=== PATIENT | female | born 1965 | race Caucasian/White ===

== ENCOUNTER 2020-02-20 20:04 | Inpatient (IN) | payer OTHER ==
[~2020-02-20] VITALS: Ht 165.1 cm; Wt 46.8 kg
[~2020-02-20 20:04] MED LIST: CLINDAMYCIN HC300 MG PO; DAYPRO600 M1 PO; PERCOCET 325 MG1 TA6 PO; VITAMINS & MINE1 TAB PO
[2020-02-20 20:10] VITALS: BP 107/72
[2020-02-20 20:46] LABS: BILIRUBIN NEGATIVE (NEGATIVE); BLOOD NEGATIVE (NEGATIVE); CLARITY CLEAR (CLEAR); COLOR YELLOW (YELLOW); GLUCOSE NEGATIVE (NEGATIVE); KETONE 2+ (NEGATIVE); UROBILINOGEN 0.2 E.U./dl (0.2-1.0)
[2020-02-20 20:50] LABS: LEUKO ESTERASE TRACE (NEGATIVE); NITRITE NEGATIVE (NEGATIVE)
[2020-02-20 20:54] LABS: URINE AMPHETAMINES < 1000 (1000ng/ml); URINE BARBITURATES > 200 (200ng/ml); URINE BENZODIAZEPINES < 200 (200ng/ml); URINE CANNABINOIDS (THC) > 50 (50ng/ml); URINE COCAINE > 300 (300ng/ml); URINE METHADONE < 300 (300ng/ml); URINE OPIATES < 300 (300ng/ml)
[2020-02-20 20:56] LABS: BACTERIA 2+; EPITHELIAL CELLS 31-40; MUCOUS 2+
[2020-02-20 20:58] LABS: URINE PHENCYCLIDINE < 25 (25ng/ml)
[2020-02-20 21:08] LABS: BASO % 0.7 % (0.0-1.0); EOS # 0.1 10*3/uL (0.0-0.4); EOS % 0.9 % (1.0-4.0); HEMATOCRIT 42.6 % (37.0-47.0); LYMPH # 1.8 10*3/uL (1.3-4.4); LYMPH % 30.6 % (27.0-41.0); MEAN CELL VOLUME 105.2 fl (81.0-99.0); MEAN CORPUSCULAR HGB 35.8 pg (27.0-31.0); MEAN PLATELET VOLUME 8.8 fl (9.6-12.3); MONO # 0.7 10*3/uL (0.1-1.0); MONO % 11.5 % (3.0-9.0); NEUT # 3.3 10*3/uL (2.3-7.9); PLATELET COUNT AUTOMATED 252 10*3/uL (130-400); RED BLOOD COUNT 4.05 10*6/uL (4.10-5.10); RED CELL DISTRI WIDTH 13.4 % (0-14.5); WHITE BLOOD COUNT 5.9 10*3/uL (4.8-10.8)
[2020-02-20 21:25] LABS: ALBUMIN 3.4 gm/dl (3.1-4.5); ALKALINE PHOSPHATASE 78 U/L (45-117); BUN 28 mg/dl (7-24); CHLORIDE 104 mmol/L (98-107); LIPASE 90 U/L (73-393); POTASSIUM 3.8 mmol/L (3.5-5.1); SGOT/AST 44 IU/L (3-35); SGPT/ALT 71 U/L (12-78); SODIUM 140 mmol/L (136-145); TOTAL PROTEIN 7.9 gm/dL (6.4-8.2)
[2020-02-20 21:26] LABS: ACT PARTIAL THROMBO TIME 22.7 SECONDS (20.0-32.1)
[2020-02-20 21:31] LABS: ACETAMINOPHEN (TYLENOL) < 5.0 ug/ml (10-30); ETHYL ALCOHOL < 3.0 mg/dl (<3); TROPONIN I < 0.015 ng/ml (<0.045)
[2020-02-20 22:35] VITALS: BP 106/68
--- NOTE | 2020-02-20 22:35 | NUR ---
Time: 2234 A 54 year old F admitted to under services of SHERRY MORFIN DO. Pt. arrived via bed from ER. Chief complaint: PRESENTS TO ER REQUESTING DETOX. ADMITS TO SNORTING HEROIN, SMOKING CRACK, AND DRINKING 24 BEERS DAILY. ЕЛЕНА LOZOYA
[2020-02-20] MEDS ORDERED: HALOPERIDOL1 MG PO (22:47)
[2020-02-20] MEDS ORDERED: QUETIAPINE FUMA25 MG PO (22:47)
--- NOTE | 2020-02-20 23:28 | NUR ---
Patient displaying withdrawal symptoms, including: irritability, anxiousness, restlessness and agitation. Scheduled/PRN medications provided, SEE EMAR. Will continue to monitor medication effectiveness.
--- NOTE | 2020-02-21 00:15 | NUR ---
Patient resting. Responding to scheduled medications with fewer complaints of pain and anxiety.
--- NOTE | 2020-02-21 06:00 | NUR ---
SLEPT THROUGHOUT NIGHT, AWAKENED ONLY FOR ROUTINE MEDS. RESPIRATIONS EASY. CALL LIGHT WITHIN REACH. NO VOICED COMPLAINTS THIS SHIFT
--- NOTE | 2020-02-21 11:17 | NUR ---
PATIENT MEETS [facility]. PATIENT WANTS TO FOLLOW UP WITH RESIDENTIAL TREATMENT FOR HER AFTERCARE PLAN. ME STAFF WILL SENT REFERRAL TO [facility]. NALLELY NAZARIO B.A. MASS SPECTROSCOPIST
[2020-02-21 12:00] VITALS: BP 118/74
--- NOTE | 2020-02-21 12:01 | NUR ---
BENTYL GIVEN FOR C/O ABDM. CRAMPING, ROBAXIN GIVEN FOR C/O MUSCLE CRAMPING. WILL MONITOR.
--- NOTE | 2020-02-21 12:09 | NUR ---
Nutritional Support Services Note: Ht.5'5 Wt.103#. BMI 17.2. Pt is underweight. Dx of alcohol withdrawal and polysubstance abuse. Appetite since admission has been good, she is eating 100% of meals. Pt is receiving snacks through out the day as desired. She receives a night snack. Staff to continue to encourage good po intake. Discussed need for weight increase. Will follow if needed. Jessi Holm Rdn Ld
--- NOTE | 2020-02-21 13:00 | NUR ---
STEVE AND KORI EFFECTIVE PER PT.
--- NOTE | 2020-02-21 13:52 | NUR ---
PATIENT HAS BEEN ACCEPTED TO [facility] IN [facility] FOR RESIDENTIAL TREATMENT FOR MONDAY, February POST DISCHARGE. [place] STAFF WILL SET UP TRANSPORTATION THROUGH HER INSURANCE IF NEEDED. PATIENT AGREES AND UNDERSTANDS HER AFTERCARE PLAN. NALLELY NAZARIO B.A. CLIENT OPERATIONS MANAGER
--- NOTE | 2020-02-21 14:14 | NUR ---
ROBAXIN GIVEN FOR C/O MUSCLE CRAMPING, BENTYL GIVEN FOR C/O ABDM. CRAMPING. WILL MONITOR.
--- NOTE | 2020-02-21 15:50 | NUR ---
ZOFRAN GIVEN FOR C/O NUASEA, IV ATIVAN GIVEN FOR C/O SEVERE ANXIETY. WILL MONITOR.
[2020-02-21 16:00] VITALS: BP 114/75
--- NOTE | 2020-02-21 17:00 | NUR ---
ZOFRAN AND ATIVAN APPEAR EFFECTIVE. PT RESTING IN BED WITH EYES CLOSED.
--- NOTE | 2020-02-21 18:09 | NUR ---
PT REQUESTING MEDS, WHEN ASKED FOR WHAT SYMPTOMS, PT RESPONDS TO HELP ME SLEEP. I EXPLAINED TO PT THAT MEDS FOR SLEEP WEREN'T TYPICALLY GIVEN THIS EARLY. WILL MONITOR.
--- NOTE | 2020-02-21 18:38 | NUR ---
VISTARIL GIVEN FOR C/O ANXIETY. ROBAXIN GIVEN FOR C/O MUSCLE ACHES. WILL MONITOR.
[2020-02-21 20:00] VITALS: BP 105/65
--- NOTE | 2020-02-21 20:52 | NUR ---
PT C/O STOMACH CRAMPS, NAUSEA, RLS, ANXIETY, DIAPHORESIS. MEDICATED W/ZOFRAN, MOTRIN, BENTYL, TRAZADONE. NO TREMORS NOTED. CALL LIGHT IN REACH.
--- NOTE | 2020-02-21 21:52 | NUR ---
PT RESTING QUIETLY IN BED W/EYES CLOSED. PRN MEDS EFFECTIVE.
[2020-02-22] VITALS: BP 92/63
--- NOTE | 2020-02-22 03:32 | NUR ---
PT RESTING QUEITLY IN BED W/EYES CLOSED. NO S/S OF WITHDRAWAL NOTED. CALL LIGHT IN REACH.
--- NOTE | 2020-02-22 07:00 | NUR ---
ARRIVED ON SHIFT, REPORT RECEIVED FROM OFF GOING NURSE, WHITE BOARD UPDATED.
--- NOTE | 2020-02-22 07:15 | NUR ---
INTRODUCED TO SELF TO PATIENT, BED IN LOWN POSITION WITH WHEEL LOCKS ENGAGED, SIDE RAILS UP X 2 FOR TURNING AND REPOSITIONING, CALL LIGHT WITHIN REACH, CALL LIGHT WITHIN REACH.
[2020-02-22 08:00] VITALS: BP 96/56
--- NOTE | 2020-02-22 08:56 | NUR ---
CALL PLACED TO DR. NEGRO, REPORTED PATIENT HAS ITCHING ABOVE PUBUS, SLIGHT RASH NOTED.
--- NOTE | 2020-02-22 09:30 | NUR ---
PATIENT C/O ABDOMINAL CRAMPING AND ALL OVER PAIN 10/10, MEDICATED WITH BENTYL, MOTRIN AND VISTRAL ORDERED PRN.
--- NOTE | 2020-02-22 09:38 | NUR ---
PATIENT REPORTS HER ANXIETY IS WORSENING, MEDICATED WITH LORAZEPAM ORDERED PRN.
--- NOTE | 2020-02-22 10:30 | NUR ---
PATIENTS PRN MEDICATIONS EFFECTIVE EVIDENCED BY PATIENT RESTING QUIETLY WITH EYES CLOSED, RESP. EASY AND NON-LABORED. WILL CONTINUE TO MONITOR.
[2020-02-22 12:00] VITALS: BP 94/56
--- NOTE | 2020-02-22 14:15 | NUR ---
CALL PLACED TO DR. NEGRO ADVISED THAT PATIENT WANTED SHOWER, ORDER RECEIVED TO REMOVE MONITOR TO SHOWER.
[2020-02-22 16:00] VITALS: BP 102/58
[2020-02-22 20:00] VITALS: BP 96/62
--- NOTE | 2020-02-22 21:20 | NUR ---
PATIENT MEDICATED WITH TRAZODONE FOR COMPLAINTS OF INSOMNIA. WILL MONITOR FOR EFFECTIVENESS. CALL LIGHT IN REACH.
--- NOTE | 2020-02-22 21:45 | NUR ---
PATIENT MEDICATED WITH TRAZODONE FOR COMPLAINTS OF INSOMNIA. WILL MONITOR FOR EFFECTIVENESS. CALL LIGHT IN REACH.
[2020-02-23] VITALS: BP 96/68
--- NOTE | 2020-02-23 00:19 | NUR ---
TRAZODONE EFFECTIVE. PATIENT IN BED SLEEPING. NO SIGNS OR SYMPTOMS OF DISTRESS NOTED.
--- NOTE | 2020-02-23 07:00 | NUR ---
ARRIVED ON SHIFT, RECEIVED REPORT FROM OFFGOING NURSE, ASSUMED CARE OF PATIENT.
--- NOTE | 2020-02-23 07:25 | NUR ---
INTRODUCED SELF TO PATIENT BED IN LOW POSITION, WHEEL LOCKS ENGAGED, SIDE RAILS UP X 2 FOR TURNING AND REPOSITIONING, CALL LIGHT WITHIN REACH, NO NEEDS VOICED AT THIS TIME. WHITE BOARD UPDATED.
--- NOTE | 2020-02-23 07:30 | NUR ---
Shift chart check completed.
[2020-02-23 08:00] VITALS: BP 110/72
--- NOTE | 2020-02-23 10:00 | NUR ---
PATIENT REQUESTING IV BE REMOVED SPOKE WITH DR. SUERO HE GAVE OKN TO REMOVE AND LEAVE OUT.
--- NOTE | 2020-02-23 10:40 | NUR ---
PATIENT C/O ALL OVER PAIN 10/10, ABDOMINAL CRAMPING AND NAUSEA, MEDICATED WITH MOTRIN, BENTYL AND ZOFRAN ORDERED.
--- NOTE | 2020-02-23 11:40 | NUR ---
MOTRIN, BENTYL AND ZOFRAN EFFECTIVE EVIDENCED BY, UPON ENTERING PATIENTS ROOM, SHE WAS RESTING QUIETLY WITH EYES CLOSED, RESPIRATIONS EASY, AND NON-LABORED, NO S/S OF DISTRESS NOTED.
[2020-02-23 12:00] VITALS: BP 94/50
--- NOTE | 2020-02-23 15:37 | NUR ---
PATIENT C/O OF INDIGESTION MEDICATED WITH MYLANTA ORDERED PRN.
[2020-02-23 16:00] VITALS: BP 96/58
[2020-02-23 20:00] VITALS: BP 100/63
--- NOTE | 2020-02-23 21:25 | NUR ---
PATIENT MEDICATED WITH TRAZODONE FOR COMPLAINTS OF INSOMNIA AND MAALOX FOR COMPLAINTS OF HEARTBURN. WILL MONITOR FOR EFFECTIVENESS. CALL LIGHT IN REACH.
--- NOTE | 2020-02-23 22:15 | NUR ---
TRAZODONE AND MAALOX EFFECTIVE.
[2020-02-24] VITALS: BP 122/86
--- NOTE | 2020-02-24 07:00 | NUR ---
ARRIVED ON SHIFT, REPORT RECEIVED FROM OFFGOING NURSE, ASSUMED CARE OF PATIENT.
[2020-02-24 07:19] LABS: HEMATOCRIT 35.6 % (37.0-47.0); MEAN CELL VOLUME 108.5 fl (81.0-99.0); MEAN CORPUSCULAR HGB CONC 33.1 g/dl (33.0-37.0); MEAN PLATELET VOLUME 8.7 fl (9.6-12.3); PLATELET COUNT AUTOMATED 165 10*3/uL (130-400); RED BLOOD COUNT 3.28 10*6/uL (4.10-5.10); RED CELL DISTRI WIDTH 13.6 % (0-14.5); WHITE BLOOD COUNT 5.9 10*3/uL (4.8-10.8)
--- NOTE | 2020-02-24 07:30 | NUR ---
INTRODUCED SELF TO PATIENT BED IN LOW POSITION, WHEEL LOCKS ENGAGED, SIDE RAILS UP X 2 FOR TURNING AND REPOSITIOING, CALL LIGHT WITHIN REACH, ASKING ABOUT DISCHARGE TIME, ADVISED THAT NEED TO DO THEIR ROUNDS. NO OTHER NEEDS VOICED, WHITE BOARD UPDATED.
[2020-02-24 07:40] LABS: CREATININE 0.51 mg/dL (0.55-1.02)
[2020-02-24 07:42] LABS: TOTAL CELLS COUNTED 100 #CELLS
[2020-02-24 07:43] LABS: PLATELET SUFFICIENCY NORMAL (NORMAL)
--- NOTE | 2020-02-24 08:13 | NUR ---
Shift chart check completed.
--- NOTE | 2020-02-24 11:34 | NUR ---
Patient discharged in stable condition, referral letter provided to patient with specific instructions and appointment for ongoing treatment. Patient verbalizes understanding of discharge plan, IV REMOVED REFUSED W/C FOR DISCHARGE ESCORTED OUT BY GAYE.
== END 2020-02-24 11:34 | disposition home or self-care (01) | DRG 773 ==
LOC: ED 20:04 → 5E 21:12 → EDHOLD 21:12 → 5E 22:27
PROVIDERS: Nurse Practitioner Family; ADMIT Student in an Organized Health Care Education/Training Program
DX: F11.23 Opioid dependence with withdrawal (principal); F10.239 Alcohol dependence with withdrawal, unspecified; F17.210 Nicotine dependence, cigarettes, uncomplicated; D75.89 Other specified diseases of blood and blood-forming organs; R74.0 Nonspecific elevation of levels of transaminase and lactic acid dehydrogenase [LDH]; F14.23 Cocaine dependence with withdrawal; F13.10 Sedative, hypnotic or anxiolytic abuse, uncomplicated; F41.9 Anxiety disorder, unspecified; F12.10 Cannabis abuse, uncomplicated; E83.41 Hypermagnesemia; F95.2 Tourette's disorder; E44.0 Moderate protein-calorie malnutrition; Z71.6 Tobacco abuse counseling; Z88.8 Allergy status to other drugs, medicaments and biological substances; Z88.0 Allergy status to penicillin; Z88.6 Allergy status to analgesic agent; Z82.0 Family history of epilepsy and other diseases of the nervous system; Z80.8 Family history of malignant neoplasm of other organs or systems; Q05.9 Spina bifida, unspecified

== ENCOUNTER 2020-02-28 01:58 | Emergency (ER) | payer OTHER ==
[~2020-02-28] VITALS: Ht 166.3 cm; Wt 49.9 kg
[~2020-02-28 01:58] MED LIST changes: +HALOPERIDOL1 MG PO; +QUETIAPINE FUMA25 MG PO
[2020-02-28 02:44] LABS: HEMATOCRIT 38.7 % (37.0-47.0); MEAN CORPUSCULAR HGB 35.8 pg (27.0-31.0); MEAN CORPUSCULAR HGB CONC 32.8 g/dl (33.0-37.0); MEAN PLATELET VOLUME 8.9 fl (9.6-12.3); PLATELET COUNT AUTOMATED 188 10*3/uL (130-400); RED BLOOD COUNT 3.55 10*6/uL (4.10-5.10); RED CELL DISTRI WIDTH 13.6 % (0-14.5); WHITE BLOOD COUNT 5.7 10*3/uL (4.8-10.8)
[2020-02-28 03:02] LABS: ACETAMINOPHEN (TYLENOL) < 5.0 ug/ml (10-30); ALBUMIN 2.9 gm/dl (3.1-4.5); ALKALINE PHOSPHATASE 55 U/L (45-117); BUN 19 mg/dl (7-24); CHLORIDE 110 mmol/L (98-107); CREATININE 0.56 mg/dL (0.55-1.02); ETHYL ALCOHOL < 3.0 mg/dl (<3); SGOT/AST 54 IU/L (3-35); SGPT/ALT 85 U/L (12-78); SODIUM 143 mmol/L (136-145); TOTAL PROTEIN 6.7 gm/dL (6.4-8.2)
[2020-02-28 03:07] LABS: PLATELET SUFFICIENCY NORMAL (NORMAL); TOTAL CELLS COUNTED 100 #CELLS
[2020-02-29] MEDS ORDERED: VISTARIL50 MG PO (11:01)
[2020-02-29] MEDS ORDERED: COGENTIN0.5 MG PO (11:02)
== END 2020-02-28 04:29 | disposition home or self-care (01) ==
LOC: ED 01:58
PROVIDERS: Emergency Medicine
DX: F19.10 Other psychoactive substance abuse, uncomplicated (principal); J44.9 Chronic obstructive pulmonary disease, unspecified; F41.9 Anxiety disorder, unspecified; F17.200 Nicotine dependence, unspecified, uncomplicated; Z79.899 Other long term (current) drug therapy

== ENCOUNTER 2020-02-28 07:13 | Inpatient (IN) | payer OTHER ==
[~2020-02-28] VITALS: Ht 165.1 cm; Wt 49.9 kg
[2020-02-28 07:21] VITALS: BP 118/86
[2020-02-28 08:26] LABS: HEMATOCRIT 40.9 % (37.0-47.0); MEAN CELL VOLUME 109.4 fl (81.0-99.0); MEAN CORPUSCULAR HGB 35.3 pg (27.0-31.0); MEAN CORPUSCULAR HGB CONC 32.3 g/dl (33.0-37.0); MEAN PLATELET VOLUME 8.9 fl (9.6-12.3); PLATELET COUNT AUTOMATED 191 10*3/uL (130-400); RED BLOOD COUNT 3.74 10*6/uL (4.10-5.10); RED CELL DISTRI WIDTH 13.6 % (0-14.5); WHITE BLOOD COUNT 6.1 10*3/uL (4.8-10.8)
--- NOTE | 2020-02-28 08:33 | NUR ---
PT REQUESTING [facility], NALLELY FROM OUR [facility] WAS CALL, PT WILL NOT QUALITIY SINCE SHE IS NOT 30 DAYS OUT FROM LAST [facility] ADMITT. NALLELY STATES SHE WILL COME SPEAK TO THE PT.
[2020-02-28 08:41] LABS: ALBUMIN 3.2 gm/dl (3.1-4.5); ALKALINE PHOSPHATASE 65 U/L (45-117); BUN 15 mg/dl (7-24); CHLORIDE 110 mmol/L (98-107); CREATININE 0.49 mg/dL (0.55-1.02); POTASSIUM 3.8 mmol/L (3.5-5.1); SGOT/AST 54 IU/L (3-35); SGPT/ALT 94 U/L (12-78); SODIUM 140 mmol/L (136-145); TOTAL PROTEIN 7.4 gm/dL (6.4-8.2)
[2020-02-28 08:48] LABS: ETHYL ALCOHOL < 3.0 mg/dl (<3)
[2020-02-28 08:56] LABS: ATYPICAL LYMPHS 1 % (0-0); BASOPHILS 2 % (0-1); PLATELET SUFFICIENCY NORMAL (NORMAL); TOTAL CELLS COUNTED 100 #CELLS
[2020-02-28 09:01] LABS: URINE AMPHETAMINES < 1000 (1000ng/ml); URINE BARBITURATES > 200 (200ng/ml); URINE BENZODIAZEPINES > 200 (200ng/ml); URINE CANNABINOIDS (THC) < 50 (50ng/ml); URINE COCAINE < 300 (300ng/ml); URINE METHADONE < 300 (300ng/ml); URINE OPIATES < 300 (300ng/ml)
[2020-02-28 09:05] LABS: URINE PHENCYCLIDINE < 25 (25ng/ml)
--- NOTE | 2020-02-28 09:05 | NUR ---
UNABLE TO OBTAIN IV ACCESS, NALLELY DISCUSSED PATIENT TO GO TO [facility], DOCTOR NOTIFIED
--- NOTE | 2020-02-28 10:14 | NUR ---
STILL UNABLE TO OBTAIN AN IV. ONE MORE ATTEMPT WILL BE MADE.
--- NOTE | 2020-02-28 10:55 | NUR ---
IV WAS ESTABLISED IN THE R HAND, VIT BAG INFUSING PER ORDER.
[2020-02-28 11:01] VITALS: BP 119/88
[2020-02-28 11:05] VITALS: BP 125/89
--- NOTE | 2020-02-28 11:05 | NUR ---
A 54, admitted to 5E, under the services of TOMAS Boyce DO with a diagnosis of ALCOHOL WITHDRAWAL. Chief complaint is SAME. Patient arrived via stretcher from ER. Monitor applied. Initial assessment completed. Vital signs taken and recorded. See assessment for past medical history, medications and allergies. Patient and/or family oriented to unit. [facility] visitation policy reviewed. Clothing/patient valuable form completed. LULU GILLETTE
--- NOTE | 2020-02-28 11:26 | NUR ---
Medicated with vistaril, bentyl, tylenol and zofran per prn orders for c/o anxiety, abdominal cramping and pain and nausea.
--- NOTE | 2020-02-28 12:10 | NUR ---
Pt woken for routine dose of ativan taper and nicotine inhaler. Pt states she is feeling relief from symtpoms of withdrawal since having prn medications.
--- NOTE | 2020-02-28 15:50 | NUR ---
Pt state she has hx of spina bifada and has a bulge on her back that has increased in size. States it is causing her pain and she wanted physican called to see if she could have some neurotin ordered. I notified pt that I would call but that I could given her some tylenol and robaxin if she would like. Pt agreed. Pt medicated with this at this time. I spoke with Candice Card regarding pt request and that I had given pt tylenol and robaxin. No order for neurotin.
[2020-02-28 16:00] VITALS: BP 103/82
--- NOTE | 2020-02-28 16:30 | NUR ---
States that meds helped somewhat for back discomfort.
--- NOTE | 2020-02-28 18:57 | NUR ---
Pt c/o shakes, moderate tremors noted. States she feels awful, anxious and sick. Medicated with ativan iv per prn order.
--- NOTE | 2020-02-28 19:25 | NUR ---
Pt states ativan iv helped with anxiety somewhat. States she is still feeling anxious. States feels like she is having trouble breathing. VS wnl. HR 103. Respirations were 18. Pox on ra 97% at this time. Given vistaril at this time. Will continue to monitor.
[2020-02-28 20:00] VITALS: BP 116/77
--- NOTE | 2020-02-28 20:15 | NUR ---
PT ANXIOUS, PACING FLOOR, ABDOMINAL CRAMPS. MEDICATED WITH ATIVAN AND BENTYL, SEE EMAR. CALL LIGHT IN REACH.
--- NOTE | 2020-02-28 21:29 | NUR ---
PT REQUESTING TRAZADONE FOR SLEEP. ALSO REQUESTING SMOKING PATCH INSTEAD INHALER, SEE EMAR. MEDICATED WITH NICOTINE PATCH. CALL LIGHT IN REACH.
--- NOTE | 2020-02-28 21:31 | NUR ---
REQUESTING ANOTHER TRAZADONE MEDICATED SEE EMAR. CALL LIGHT IN REACH.
--- NOTE | 2020-02-28 22:20 | NUR ---
RESTING IN BED. RESP-EASY AND REGULAR. MEDICATION EFFECTIVE. NO C/O AT THIS TIME. CALL LIGHT IN REACH.
--- NOTE | 2020-02-28 23:20 | NUR ---
PT RESTING IN BED. RESP-EASY AND REGULAR. PT MEDICATED WITH ATIVAN FOR ANXIETY. MEDICATED WITH REQUIP AND ROBAXIN FOR RESTLESS LEGS AND MUSCLE ACHES. SEE EMAR. CALL LIGHT IN REACH.
[2020-02-29] VITALS: BP 115/79
--- NOTE | 2020-02-29 00:20 | NUR ---
SLEEPING IN BED. RESP-EASY AND REGULAR. MEDICATION SEEMS TO BE EFFECTIVE. CALL LIGHT IN REACH.
--- NOTE | 2020-02-29 06:10 | NUR ---
PT RESTIN GIN BED. MEDICATED WITH ATIVAN FOR ANXIETY AND REQUIP PER ROUTINE ORDERS, SEE EMAR. CALL LIGHT IN REACH.
--- NOTE | 2020-02-29 06:33 | NUR ---
PT C/O HEADACHE, RATES PAIN 10 ON PAIN SCALE 0-10. MEDICATED WITH TYLENOL PO PER PRN ORDER SEE EMAR. ALSO MEDICATED WITH ROBAXIN FOR MUSCLE ACHES. SEE EMAR. CALL LIGHT IN REACH .
[2020-02-29 08:00] VITALS: BP 110/72
--- NOTE | 2020-02-29 10:43 | NUR ---
MEDICATED WITH PRN PO VISTARIL AND BENTYL FOR ANXIETY AND ABDOMINAL CRAMPS, TYLENOL AT 1036 FOR HEADACHE, AND ZOFRAN FOR NAUSEA AT 1047. BENADRYL AND REGLAN WERE ADMINISTERED X 1 ORDERED FOR HEADACHE W/NAUSEA AND ALSO STARTED IVF W/NSS @ 125ML/HR ORDERED FOR DEHYDRATION.
[2020-02-29] MEDS ORDERED: VISTARIL50 MG PO (11:01)
[2020-02-29] MEDS ORDERED: COGENTIN0.5 MG PO (11:02)
--- NOTE | 2020-02-29 11:30 | NUR ---
Patient resting. Responding to scheduled and prn medications with fewer complaints of pain and anxiety.
--- NOTE | 2020-02-29 11:34 | NUR ---
Basic Sciences Professor in to talk to patient. Patient states lives at HOME with ALONE. There are NO steps in the home. Physician: NONE AT THIS TIME [facility]acy: [facility] Home health services: NONE Patient's level of ADLs: INDEPENDENT Patient has working utilities: YES DME: NONE Follow-up physician's appointment after d/c: NO PCP AT THIS TIME Does patient want to access PORTAL?: NO Discharge plan PT LIVES AT HOME ALONE AND IS INDEPENDENT IN HER CARE. PT RECENTLY COMPLETED [facility] AND WAS DC TO [facility]. RELASPED WHEN DISCHARGED FROM [facility]. PT DECLINES NEED FOR ANY HOME SERVICES AT THIS TIME. WILL CONTINUE TO FOLLOW. PT STATES SHE WILL HAVE A RIDE HOME ON DISCHARGE HOME. . TARIQ OSPINA
[2020-02-29 12:00] VITALS: BP 102/58
--- NOTE | 2020-02-29 12:44 | NUR ---
PATIENT REPORTS GENERALIZED BODY ACHES AND CRAMPS, GAVE PRN ROBAXIN.
--- NOTE | 2020-02-29 12:51 | NUR ---
MEDICATED WITH PRN IV ATIVAN FOR ANXIETY.
--- NOTE | 2020-02-29 14:01 | NUR ---
ADMINISTERED IV ATIVAN X 1 NOW ORDERED.
[2020-02-29 15:00] VITALS: BP 114/67
--- NOTE | 2020-02-29 15:10 | NUR ---
PATIENT REPORTS MIDSTERNAL CHEST PAIN AND SHORTNESS OF BREATH AND SWEATING, STATES NOT BREATHING RIGHT FOR PAST HALF AN HOUR, ONSET 1330. 19 REGULAR RESPIRATIONS NOTED, SKIN WARM AND DRY, LUNGS CLEAR TO AUSCULTATION. DESCRIBES PAIN TO CHEST THROBBING/CONSTANT. OBTAINED VITAL SIGNS FOLLOWS: BP 114/67, PULSE 108, TEMP. 98.8 AND POX 97% ROOM AIR. DR. BREWER NOTIFIED OF THESE FINDINGS. OBTAINING STAT EKG.
[2020-02-29 16:00] VITALS: BP 122/72
--- NOTE | 2020-02-29 16:10 | NUR ---
PT REPORTS OF HEADACHE AND BODYACHES, GAVE PO PRN TYELNOL. GAVE VISTARIL FOR ANXIETY.
--- NOTE | 2020-02-29 17:10 | NUR ---
PRN PO TYLENOL AND VISTARIL NOT EFFECTIVE, PER PATIENT.
--- NOTE | 2020-02-29 17:21 | NUR ---
PATIENT IS NOW SLEEPING, NO S/S PAIN OR DISTRESS.
--- NOTE | 2020-02-29 17:27 | NUR ---
PATIENT AWAKE AND C/O PAIN/ACHES/CRAMPS HEADACHE.
--- NOTE | 2020-02-29 18:35 | NUR ---
PATIENT C/O BODY PAIN/CRAMPS, ADMINISTERED PO ROBAXIN AT THIS TIME.
[2020-02-29 20:00] VITALS: BP 110/63
--- NOTE | 2020-02-29 20:10 | NUR ---
PATIENT REQUESTING NURSE TO COME TO HER ROOM. UPON ENTERING ROOM PATIENT LYING FLAT AND SUPINE IN BED, STATING THAT SHE "FEELS LIKE SHIT AND NEEDS WHATEVER MEDS I CAN GET RIGHT NOW." PATIENT MEDICATED WITH SCHEDULED PO ATIVAN, REQUIP SEROQUEL AND PRN BENTYL AND TRAZADONE AT THIS TIME. PATIENT REQUESTING BENADRYL ALSO AT THIS TIME TO HELP HER SLEEP, ADVISED THAT SHE IS NOT ORDERED THIS MEDICATION AND THE HOSPITALIST WILL BE CALLED FOR ORDERS. CALL LIGHT WITHIN REACH, WILL CONTINUE TO MONITOR.
--- NOTE | 2020-02-29 20:51 | NUR ---
PATIENT TOLD AIDE THAT SHE WAS HAVING CHEST PAIN AND SHORTNESS OF BREATH AT THIS TIME. UPON ENTERING ROOM THIS RN FOUND PATIENT LYING FLAT AND SUPINE IN HER BED, HEAD OF BED ELEVATED TO 30 DEGREES, VITAL SIGBNS OBTAINED FOLLOWS, SPO2, 97% ON ROOM AIR, RESPIRATIONS 18 NON-LABORED AND REGULAR, HEART RATE 103 ON SOLAR ELECTRIC/PHOTOVOLTAIC INSTALLER AND REGULAR SINUS RHYTHM, BLOOD PRESSURE 112/68, NO DIAPHORESIS NOTED TO PATIENT SKIN. PATIENT REQUESTING ANOTHER TRAZADONE AT THIS TIME ALONG WITH BENADRYL AND "WHATEVER I CAN GET THAT I HAVEN'T GOT YET." PATIENT ADVISED THAT THE HOSPITALIST WILL BE CALLED FOR FURTHER ORDERS AND RECCOMENDATIONS FOR CHEST PAIN.
--- NOTE | 2020-02-29 20:56 | NUR ---
DR. SCHREIBER NOTIFIED AT THIS TIME OF PATIENT COMPLAINTS OF CHEST PAIN AND SHORTNESS OF BREATH, VITAL SIGNS AND CONDITION. ORDERS FOR BLOOD WORK PLACED.
--- NOTE | 2020-02-29 21:11 | NUR ---
PRN ATIVAN PO AND VISTARIL GIVEN AT THIS TIME, A&O X3, CALL LIGHT WITHIN REACH WILL CONTINUE TO MONITOR.
[2020-02-29 21:52] LABS: BUN 9 mg/dl (7-24); CHLORIDE 116 mmol/L (98-107); CREATININE 0.68 mg/dL (0.55-1.02); POTASSIUM 3.3 mmol/L (3.5-5.1); SODIUM 147 mmol/L (136-145); TROPONIN I < 0.015 ng/ml (<0.045)
--- NOTE | 2020-02-29 22:50 | NUR ---
DR. SCHREIBER NOTIFIED OF PATIENT ORDERED LAB RESULTS, WILL REVIEW AND PLACE ORDERS IF NEEDED.
--- NOTE | 2020-02-29 23:08 | NUR ---
ONE TIME DOSE OF K-DUR GIVEN AT THIS TIME FOR POTASSIUM OF 3.3. PRN ROBAXIN GIVEN AT THIS TIME FOR PATIENT COMPLAINT OF LEG CRAMPS AND RESTLESS LEGS.
--- NOTE | 2020-03-01 01:50 | NUR ---
PRN BENTYL AND VISTARIL GIVEN AT THIS TIME FOR PATIENT COMPLAINTS OF WITHDRAWL SYMPTOMS
--- NOTE | 2020-03-01 05:09 | NUR ---
24 HOUR CHART CHECK COMPLETE
--- NOTE | 2020-03-01 05:44 | NUR ---
PRN ROBAXIN GIVEN AT THIS TIME FOR PATIENT COMPLAINT OF MUSCLE CRAMPS AND RESTLESS LEGS. A&O X3, CALL LIGHT WITHIN REACH. WILL CONTINUE TO MONITOR.
--- NOTE | 2020-03-01 05:50 | NUR ---
PATIENT STATED "THEY NEED TO GET ME MORE MEDS UP IN HERE TO TAKE CAUSE I HAVEN'T SLEPT ALL NIGHT, MY LEGS ARE SHAKING ALL OVER AND I KNOW I CAN GET MORE IF I KEEP ASKING THEM". PATIENT EDUCATED AGAIN ON MEDICATIONS THAT ARE ORDERED WELL PRN AND HOW MANY TIMES SHE HAS HAD EACH OF THEM THIS SHIFT. WHEN RN ENTERED ROOM TO ADMINISTER ORDERED MEDICATIONS PATIENT APPEARED TO BE SLEEPING AND SNORING SHE HAD TO BE GENTLY SHAKEN TO GET HER TO RESPOND.
[2020-03-01 08:00] VITALS: BP 122/80
--- NOTE | 2020-03-01 08:34 | NUR ---
PT COMPLAINS OF GENERALIZED BODY PAIN, RATES AT A 9/10 GAVE PO PRN TYLENOL. COMPLAINS OF STOMACH PAIN, GAVE PO PRN BENTYL. GAVE PO PRN VISTRIL FOR ANXIETY. APPLIED NICOTINE PATCH FOR SMOKING CRAVINGS, ALSO ADMINISTERED SCHEDULED PO ATIVAN AT THIS TIME.
--- NOTE | 2020-03-01 09:08 | NUR ---
ADMINISTERED PO TRAMADOL X 1 ORDERED FOR GENERALIZED BODY PAIN; PRN PO TYLENOL GIVEN EARLIER NOT EFFECTIVE, PER PATIENT.
--- NOTE | 2020-03-01 10:00 | NUR ---
ULTRAM EFFECTIVE FOR PAIN, PER PATIENT.
[2020-03-01] MEDS ORDERED: DICYCLOMINE HCL20 MG PO (10:27)
[2020-03-01] MEDS ORDERED: ZOFRAN 4 MG ED2 TAB PO (10:27)
[2020-03-01] MEDS ORDERED: NATURE'S BLEND F1 MG PO (10:27)
[2020-03-01] MEDS ORDERED: METHOCARBAMOL750 M1 PO (10:27)
[2020-03-01] MEDS ORDERED: VISTARIL50 MG PO (10:27)
[2020-03-01] MEDS ORDERED: THERA TABLET400 MCG PO (10:27)
[2020-03-01 12:00] VITALS: BP 131/78
--- NOTE | 2020-03-01 15:33 | NUR ---
PATIENT REPORTS PAIN ALL OVER BODY AT 10/10 SCALE. REPORTS ALL OVER BODY PAIN, ADMINISTERED ROBAXIN, STOMACH PAIN ADMINISTERED BENTYL, AND FOR ANXIETY ADMINISTERED VISTIRIL.
[2020-03-01 16:00] VITALS: BP 124/75
--- NOTE | 2020-03-01 16:30 | NUR ---
PATIENT STATES PRN MEDICATIONS FOR WITHDRAWAL SYMPTOMS ARE NOT WORKING AND BODY ACHES AND CRAMPS ARE CONTINUING.
[2020-03-01 20:00] VITALS: BP 128/86
--- NOTE | 2020-03-01 20:03 | NUR ---
PT AWAKE IN BED. QUESTIONING WHERE HER MEDICATIONS ARE. RN EXPLAINED MEDICATION SCHEDULE AND HOW PRN MEDICATIONS WORK. PT VERBALIZES UNDERSTANDING. PT REQUESTING 2200 MEDS EARLY. WILL ADMINISTER MEDICATIONS PER REQUEST.
--- NOTE | 2020-03-01 20:43 | NUR ---
SCHEDULED REQUIP AND SEROQUEL ADMINISTERED EARLY PER PT REQUEST. PO TRAZODONE ALSO ADMINSTERED PER PRN ORDER FOR C/O INSOMNIA. WILL MONITOR EFFECTIVENESS. CALL LIGHT IN REACH.
--- NOTE | 2020-03-01 21:06 | NUR ---
PT HAS CALLED OUT MULTIPLE TIMES FOR PRN MEDS. RN EXPLAINED THESE ARE NOT DUE UNTIL AROUND 9:30 PM. RN EXPLAINED THESE WILL BE GIVEN IF PATIENT ASKS FOR THEM AROUND THIS TIME. STATES EARLIER MEDICATIONS HAVE NOT HELPED HER SLEEP/CALM DOWN YET. WILL CONTINUE TO MONITOR.
--- NOTE | 2020-03-01 21:45 | NUR ---
PT REQUESTED AND RECEIVED PO BENTYL, ROBAXIN, TYLENOL, AND VISTARIL FOR C/O STOMACH ACHE, RESTLESS LEGS/PAIN IN LEGS RATED 9/10, AND ANXIETY. WILL MONITOR EFFECTIVENESS. CALL LIGHT IN REACH.
--- NOTE | 2020-03-01 22:10 | NUR ---
PT REMAINS BACKING IN MACHINE TENDER LIGHT ASKING FOR ATIVAN AND HALDOL. RN EXPLAINED ATIVAN NOT DUE UNTIL AROUND 1130 PM AND THIS WOULD BE HER LAST DOSE (3 OF 3). RN ALSO EXPLAINED HALDOL IS SCHEDULED FOR ONCE DAILY AND WAS GIVEN AROUND 0830 AM THIS MORNING. PT VERBALIZES UNDERSTANDING.
--- NOTE | 2020-03-01 23:32 | NUR ---
PT REQUESTED ATIVAN. RN IN ROOM TO GIVE MEDICATION. PILL FELL ON GROUND. PO DOSE WASTED PER POLICY AND VERIFIED BY TWO RNs. [facility] WOULD NOT ALLOW ANOTHER PILL TO BE PULLED DUE TO THIS BEING THE THIRD OF 3 PILLS. PILL PULLED FROM [facility] AN OVERRIDE, VERIFIED BY TWO RNs. ATIVAN GIVEN AT THIS TIME PER ORDER FOR C/O ANXIETY/DTs. WILL MONITOR EFFECTIVENESS. CALL LIGHT IN REACH.
[2020-03-02] VITALS: BP 120/83
--- NOTE | 2020-03-02 06:03 | NUR ---
SCHEDULED PO REQUIP ADMINISTERED PER ORDER. PO BENTYL, ROBAXIN, TYLENOL, AND VISTARIL ALSO GIVEN PER PRN ORDER FOR C/O ABD CRAMPING, MUSCLE ACHES/RESLTESS LEGS, AND ANXIETY. NICODERM PATCH ALSO PLACED ON L UPPER ARM. OLD PATCH REMOVED FROM R UPPER ARM AND DISPOSED OF PER POLICY. WILL MONITOR EFFECTIVENESS OF MEDICATIONS. CALL LIGHT IN REACH. PT REFUSING AM LABWORK.
[2020-03-02 08:00] VITALS: BP 130/88
--- NOTE | 2020-03-02 08:40 | NUR ---
IN PT ROOM GOING OVER DISCHARGE WITH PATIENT, SHE STATES SHE HAS A RIDE SCHEDULED TO COME AT 0945, SHE WILL THEN GO TO HER [facility] DOCTOR AND FOLLOW WITH [facility]. CARIDAC MONITOR REMOVED AND IV TAKEN OUT. WILL CONTINUE TO MONITOR PATIENT
--- NOTE | 2020-03-02 09:54 | NUR ---
PT LEAVING THE FLOOR AT THIS TIME
== END 2020-03-02 09:52 | disposition home or self-care (01) | DRG 775 ==
LOC: ED 07:13 → EDHOLD 09:10 → 5E 09:10
PROVIDERS: Internal Medicine; Student in an Organized Health Care Education/Training Program; ADMIT Emergency Medicine
DX: F10.10 Alcohol abuse, uncomplicated (principal); F95.2 Tourette's disorder; R00.0 Tachycardia, unspecified; R74.0 Nonspecific elevation of levels of transaminase and lactic acid dehydrogenase [LDH]; F13.10 Sedative, hypnotic or anxiolytic abuse, uncomplicated; E44.0 Moderate protein-calorie malnutrition; F17.210 Nicotine dependence, cigarettes, uncomplicated; Z88.0 Allergy status to penicillin; Z88.6 Allergy status to analgesic agent; Z88.8 Allergy status to other drugs, medicaments and biological substances; Z82.0 Family history of epilepsy and other diseases of the nervous system; Z80.8 Family history of malignant neoplasm of other organs or systems; Z68.1 Body mass index [BMI] 19.9 or less, adult

== ENCOUNTER 2021-11-18 10:04 | Inpatient (IN) | payer OTHER ==
[~2021-11-18] VITALS: Ht 165.1 cm; Wt 64.1 kg
[~2021-11-18 10:04] MED LIST changes: +COGENTIN0.5 MG PO; +DICYCLOMINE HCL20 MG PO; +METHOCARBAMOL750 M1 PO; +NATURE'S BLEND F1 MG PO; +THERA TABLET400 MCG PO; +VISTARIL50 MG PO; +ZOFRAN 4 MG ED2 TAB PO
[2021-11-18 10:18] VITALS: BP 130/88
[2021-11-18 12:01] LABS: BASO % 0.3 % (0.0-1.0); EOS # 0.1 10*3/uL (0.0-0.4); EOS % 0.4 % (1.0-4.0); HEMATOCRIT 44.1 % (37.0-47.0); LYMPH # 1.5 10*3/uL (1.3-4.4); MEAN CORPUSCULAR HGB 34.4 pg (27.0-31.0); MEAN CORPUSCULAR HGB CONC 33.1 g/dl (33.0-37.0); MONO # 0.8 10*3/uL (0.1-1.0); NEUT # 9.3 10*3/uL (2.3-7.9); NEUT % 78.8 % (47.0-73.0); PLATELET COUNT AUTOMATED 252 10*3/uL (130-400); RED BLOOD COUNT 4.24 10*6/uL (4.10-5.10); RED CELL DISTRI WIDTH 13.1 % (0-14.5); WHITE BLOOD COUNT 11.8 10*3/uL (4.8-10.8)
[2021-11-18 12:13] LABS: BILIRUBIN Negative (Negative); BLOOD Negative (Negative); CLARITY Cloudy (Clear); COLOR Dark Yellow (Yellow); GLUCOSE Negative (Negative); KETONE Trace (Negative); LEUKO ESTERASE 2+ (Negative); NITRITE Negative (Negative); PH 5.5 (4.5-8.0); SPECIFIC GRAVITY >= 1.030 (1.001-1.030)
[2021-11-18 12:15] LABS: ALKALINE PHOSPHATASE 120 U/L (45-117); BUN 27 mg/dl (7-24); CHLORIDE 107 mmol/L (98-107); CREATININE 0.77 mg/dL (0.55-1.02); POTASSIUM 3.6 mmol/L (3.5-5.1); SGOT/AST 36 IU/L (3-35); SGPT/ALT 22 U/L (12-78); SODIUM 136 mmol/L (136-145); TOTAL PROTEIN 8.3 gm/dL (6.4-8.2)
[2021-11-18 12:23] LABS: MUCOUS 1+; WBC 21-30 wbc/hpf (0-5)
[2021-11-18 12:30] LABS: URINE AMPHETAMINES > 1000 (1000ng/ml); URINE BARBITURATES < 200 (200ng/ml); URINE METHADONE < 300 (300ng/ml)
[2021-11-18 12:35] LABS: URINE BENZODIAZEPINES < 200 (200ng/ml); URINE CANNABINOIDS (THC) < 50 (50ng/ml); URINE COCAINE > 300 (300ng/ml); URINE OPIATES < 300 (300ng/ml)
[2021-11-18 12:43] LABS: URINE PHENCYCLIDINE < 25 (25ng/ml)
[2021-11-18 17:39] VITALS: BP 120/81
[2021-11-18 20:00] VITALS: BP 108/70
[2021-11-19] VITALS: BP 102/69
[2021-11-19 06:07] LABS: BASO # 0.1 10*3/uL (0.0-0.1); BASO % 0.8 % (0.0-1.0); EOS # 0.1 10*3/uL (0.0-0.4); EOS % 1.8 % (1.0-4.0); LYMPH # 2.9 10*3/uL (1.3-4.4); LYMPH % 43.7 % (27.0-41.0); MEAN CELL VOLUME 105.1 fl (81.0-99.0); MEAN CORPUSCULAR HGB 35.1 pg (27.0-31.0); MEAN CORPUSCULAR HGB CONC 33.4 g/dl (33.0-37.0); MEAN PLATELET VOLUME 9.3 fl (9.6-12.3); MONO # 0.7 10*3/uL (0.1-1.0); MONO % 10.2 % (3.0-9.0); NEUT # 2.8 10*3/uL (2.3-7.9); PLATELET COUNT AUTOMATED 246 10*3/uL (130-400); RED CELL DISTRI WIDTH 13.2 % (0-14.5); WHITE BLOOD COUNT 6.6 10*3/uL (4.8-10.8)
[2021-11-19 06:19] LABS: BUN 31 mg/dl (7-24); CHLORIDE 109 mmol/L (98-107); CREATININE 0.77 mg/dL (0.55-1.02); POTASSIUM 3.5 mmol/L (3.5-5.1); SGOT/AST 19 IU/L (3-35); SGPT/ALT 14 U/L (12-78); SODIUM 141 mmol/L (136-145); TOTAL PROTEIN 6.9 gm/dL (6.4-8.2)
[2021-11-19 06:26] LABS: ALKALINE PHOSPHATASE 107 U/L (45-117); FREE T4 1.31 ng/dl (0.76-1.46)
[2021-11-19 08:00] VITALS: BP 120/53
[2021-11-19 12:00] VITALS: BP 102/68
[2021-11-19 16:00] VITALS: BP 111/75
[2021-11-19 20:00] VITALS: BP 112/78
[2021-11-20] VITALS: BP 110/62
[2021-11-20 08:00] VITALS: BP 114/71
[2021-11-20 12:00] VITALS: BP 106/77
[2021-11-20 16:00] VITALS: BP 117/68
[2021-11-20 20:00] VITALS: BP 106/76
[2021-11-21] VITALS: BP 116/70
[2021-11-21 08:00] VITALS: BP 105/64
[2021-11-21 12:00] VITALS: BP 111/74
[2021-11-21 16:00] VITALS: BP 103/66
[2021-11-21 20:00] VITALS: BP 105/70
[2021-11-22] VITALS: BP 118/71
[2021-11-22 04:18] LABS: BASO % 0.6 % (0.0-1.0); EOS # 0.1 10*3/uL (0.0-0.4); EOS % 2.1 % (1.0-4.0); HEMATOCRIT 37.5 % (37.0-47.0); LYMPH # 1.4 10*3/uL (1.3-4.4); LYMPH % 21.9 % (27.0-41.0); MEAN CELL VOLUME 104.7 fl (81.0-99.0); MEAN CORPUSCULAR HGB 34.9 pg (27.0-31.0); MEAN CORPUSCULAR HGB CONC 33.3 g/dl (33.0-37.0); MEAN PLATELET VOLUME 9.2 fl (9.6-12.3); MONO # 0.7 10*3/uL (0.1-1.0); MONO % 9.9 % (3.0-9.0); NEUT # 4.3 10*3/uL (2.3-7.9); NEUT % 64.9 % (47.0-73.0); PLATELET COUNT AUTOMATED 190 10*3/uL (130-400); RED BLOOD COUNT 3.58 10*6/uL (4.10-5.10); RED CELL DISTRI WIDTH 12.5 % (0-14.5); WHITE BLOOD COUNT 6.6 10*3/uL (4.8-10.8)
[2021-11-22 04:30] LABS: CREATININE 0.64 mg/dL (0.55-1.02)
[2021-11-22 08:00] VITALS: BP 135/80
[2021-11-22 12:00] VITALS: BP 136/78
[2021-11-22] MEDS ORDERED: MACROBID100 M1 PO (13:41)
[2021-11-22 16:00] VITALS: BP 124/99
== END 2021-11-22 16:49 | disposition home or self-care (01) | DRG 773 ==
LOC: ED 10:04 → EDHOLD 12:09 → 5E 12:09 → EDHOLD 12:18 → 5E 16:59
PROVIDERS: Emergency Medicine; Internal Medicine; ADMIT Student in an Organized Health Care Education/Training Program; ATTEND Student in an Organized Health Care Education/Training Program
DX: F10.239 Alcohol dependence with withdrawal, unspecified (principal); F11.13 Opioid abuse with withdrawal; F95.2 Tourette's disorder; N30.00 Acute cystitis without hematuria; F17.210 Nicotine dependence, cigarettes, uncomplicated; F15.10 Other stimulant abuse, uncomplicated; F14.13 Cocaine abuse, unspecified with withdrawal; Q05.6 Thoracic spina bifida without hydrocephalus; Z71.6 Tobacco abuse counseling; Z88.0 Allergy status to penicillin; Z88.6 Allergy status to analgesic agent; Z88.8 Allergy status to other drugs, medicaments and biological substances; Z82.0 Family history of epilepsy and other diseases of the nervous system; Z79.899 Other long term (current) drug therapy

== ENCOUNTER 2022-08-31 14:51 | Inpatient (IN) | payer OTHER ==
[~2022-08-31] VITALS: Ht 160 cm; Wt 45.6 kg
[2022-08-31] VITALS: BP 101/69
[~2022-08-31 14:51] MED LIST changes: +MACROBID100 M1 PO
[2022-08-31 14:58] VITALS: BP 95/63
[2022-08-31 15:31] LABS: BASO % 0.2 % (0.0-1.0); EOS % 0.2 % (1.0-4.0); LYMPH # 1.1 10*3/uL (1.3-4.4); LYMPH % 17.9 % (27.0-41.0); MEAN CELL VOLUME 100.5 fl (81.0-99.0); MEAN CORPUSCULAR HGB 32.5 pg (27.0-31.0); MEAN CORPUSCULAR HGB CONC 32.4 g/dl (33.0-37.0); MEAN PLATELET VOLUME 8.9 fl (9.6-12.3); MONO # 0.5 10*3/uL (0.1-1.0); MONO % 8.3 % (3.0-9.0); NEUT # 4.3 10*3/uL (2.3-7.9); NEUT % 72.9 % (47.0-73.0); PLATELET COUNT AUTOMATED 217 10*3/uL (130-400); RED BLOOD COUNT 3.78 10*6/uL (4.10-5.10); RED CELL DISTRI WIDTH 13.9 % (0-14.5); WHITE BLOOD COUNT 5.9 10*3/uL (4.8-10.8)
[2022-08-31 15:49] LABS: ALKALINE PHOSPHATASE 77 U/L (46-116); BUN 16 mg/dl (9-23); CHLORIDE 102 mmol/L (98-107); POTASSIUM 4.4 mmol/L (3.4-5.1); SGPT/ALT 78 U/L (10-49); TOTAL PROTEIN 7.6 gm/dL (6.0-8.0)
[2022-08-31 15:58] LABS: ETHYL ALCOHOL < 3.0 mg/dl (<3)
[2022-08-31 16:00] VITALS: BP 101/69
[2022-08-31] MEDS ORDERED: AMITRIPTYLINE50 MG PO (18:05)
[2022-08-31] MEDS ORDERED: BUPROPION XL300 MG PO (18:06)
[2022-08-31] MEDS ORDERED: BUSPIRONE HCL10 MG PO (18:06)
[2022-08-31] MEDS ORDERED: RISPERIDONE2 M2 PO (18:07)
[2022-08-31 19:33] VITALS: BP 113/80
[2022-08-31] MEDS ORDERED: NEURONTIN300 MG PO (20:31)
[2022-08-31 21:41] VITALS: BP 111/79
[2022-09-01] VITALS: BP 97/58
[2022-09-01 05:48] LABS: ALKALINE PHOSPHATASE 71 U/L (46-116); BUN 24 mg/dl (9-23); CHLORIDE 106 mmol/L (98-107); POTASSIUM 4.3 mmol/L (3.4-5.1); SGPT/ALT 64 U/L (10-49); TOTAL PROTEIN 6.4 gm/dL (6.0-8.0)
[2022-09-01 06:04] LABS: BASO % 0.4 % (0.0-1.0); EOS # 0.1 10*3/uL (0.0-0.4); EOS % 1.7 % (1.0-4.0); HEMATOCRIT 34.5 % (37.0-47.0); LYMPH # 1.3 10*3/uL (1.3-4.4); LYMPH % 27.8 % (27.0-41.0); MEAN CELL VOLUME 101.5 fl (81.0-99.0); MEAN CORPUSCULAR HGB 32.6 pg (27.0-31.0); MEAN CORPUSCULAR HGB CONC 32.2 g/dl (33.0-37.0); MEAN PLATELET VOLUME 9.3 fl (9.6-12.3); MONO # 0.5 10*3/uL (0.1-1.0); NEUT # 2.8 10*3/uL (2.3-7.9); NEUT % 58.7 % (47.0-73.0); PLATELET COUNT AUTOMATED 207 10*3/uL (130-400); RED CELL DISTRI WIDTH 14.1 % (0-14.5); WHITE BLOOD COUNT 4.7 10*3/uL (4.8-10.8)
[2022-09-01 08:00] VITALS: BP 94/68
[2022-09-01 09:40] LABS: BILIRUBIN 1+ (Negative); BLOOD Negative (Negative); CLARITY Clear (Clear); COLOR Dark Yellow (Yellow); GLUCOSE Negative (Negative); KETONE Trace (Negative); LEUKO ESTERASE Negative (Negative); NITRITE Negative (Negative); PH 6.5 (4.5-8.0); SPECIFIC GRAVITY 1.025 (1.001-1.030)
[2022-09-01 09:47] LABS: URINE AMPHETAMINES Negative (1000ng/ml); URINE BARBITURATES Negative (200ng/ml); URINE BENZODIAZEPINES Negative (200ng/ml); URINE CANNABINOIDS (THC) Negative (50ng/ml); URINE COCAINE Negative (300ng/ml); URINE METHADONE Negative (300ng/ml); URINE OPIATES Negative (300ng/ml); URINE PHENCYCLIDINE Negative (25ng/ml)
[2022-09-01 09:49] LABS: BACTERIA 1+; EPITHELIAL CELLS 0-2
[2022-09-01 09:50] LABS: WBC 0-2 wbc/hpf (0-5)
[2022-09-01 12:00] VITALS: BP 99/65
[2022-09-01 16:00] VITALS: BP 100/65
[2022-09-01 20:00] VITALS: BP 94/59
[2022-09-02] VITALS: BP 101/69
[2022-09-02 02:54] VITALS: BP 99/71
[2022-09-02 08:00] VITALS: BP 125/96
[2022-09-02 16:00] VITALS: BP 103/70
[2022-09-02 20:00] VITALS: BP 99/62
[2022-09-03] VITALS: BP 105/70
[2022-09-03 08:00] VITALS: BP 97/70
[2022-09-03 12:00] VITALS: BP 100/63
[2022-09-03 16:00] VITALS: BP 98/65
[2022-09-03 20:00] VITALS: BP 105/84
[2022-09-04] VITALS: BP 112/72
[2022-09-04 08:00] VITALS: BP 98/64
[2022-09-04 12:00] VITALS: BP 93/70
[2022-09-04 16:00] VITALS: BP 92/59
[2022-09-04 20:00] VITALS: BP 105/69
[2022-09-05] VITALS: BP 108/72
[2022-09-05 08:00] VITALS: BP 101/69
[2022-09-05 12:00] VITALS: BP 102/65
== END 2022-09-05 13:30 | disposition home or self-care (01) | DRG 773 ==
LOC: ED 14:51 → EDHOLD 17:33 → 5E 17:33
PROVIDERS: Internal Medicine; ADMIT Internal Medicine; ATTEND Internal Medicine
DX: F10.239 Alcohol dependence with withdrawal, unspecified (principal); F11.10 Opioid abuse, uncomplicated; F19.10 Other psychoactive substance abuse, uncomplicated; E44.0 Moderate protein-calorie malnutrition; E87.1 Hypo-osmolality and hyponatremia; F41.9 Anxiety disorder, unspecified; F95.2 Tourette's disorder; D75.89 Other specified diseases of blood and blood-forming organs; F14.90 Cocaine use, unspecified, uncomplicated; R74.01 Elevation of levels of liver transaminase levels; Q05.6 Thoracic spina bifida without hydrocephalus; Z88.6 Allergy status to analgesic agent; Z88.0 Allergy status to penicillin; Z88.8 Allergy status to other drugs, medicaments and biological substances; Z81.8 Family history of other mental and behavioral disorders; Z68.1 Body mass index [BMI] 19.9 or less, adult

== ENCOUNTER 2022-09-26 08:27 | Emergency (ER) | payer OTHER ==
[~2022-09-26] VITALS: Ht 165.1 cm; Wt 54.4 kg
[~2022-09-26 08:27] MED LIST changes: +AMITRIPTYLINE50 MG PO; +BUPROPION XL300 MG PO; +BUSPIRONE HCL10 MG PO; +NEURONTIN300 MG PO; +RISPERIDONE2 M2 PO
[2022-09-26 10:16] LABS: BASO % 0.5 % (0.0-1.0); EOS # 0.1 10*3/uL (0.0-0.4); EOS % 1.8 % (1.0-4.0); HEMATOCRIT 40.2 % (37.0-47.0); LYMPH # 1.2 10*3/uL (1.3-4.4); LYMPH % 19.8 % (27.0-41.0); MEAN CELL VOLUME 103.3 fl (81.0-99.0); MEAN CORPUSCULAR HGB 33.2 pg (27.0-31.0); MEAN CORPUSCULAR HGB CONC 32.1 g/dl (33.0-37.0); MEAN PLATELET VOLUME 8.8 fl (9.6-12.3); MONO # 0.4 10*3/uL (0.1-1.0); MONO % 6.9 % (3.0-9.0); NEUT # 4.4 10*3/uL (2.3-7.9); NEUT % 70.4 % (47.0-73.0); PLATELET COUNT AUTOMATED 200 10*3/uL (130-400); RED BLOOD COUNT 3.89 10*6/uL (4.10-5.10); RED CELL DISTRI WIDTH 15.9 % (0-14.5); WHITE BLOOD COUNT 6.2 10*3/uL (4.8-10.8)
[2022-09-26 10:31] LABS: ALKALINE PHOSPHATASE 117 U/L (46-116); BUN 17 mg/dl (9-23); CHLORIDE 109 mmol/L (98-107); POTASSIUM 3.8 mmol/L (3.4-5.1); SGPT/ALT 104 U/L (10-49); TOTAL PROTEIN 7.1 gm/dL (6.0-8.0)
[2022-09-26 10:32] LABS: ETHYL ALCOHOL < 3.0 mg/dl (<3)
== END 2022-09-26 11:01 | disposition home or self-care (01) ==
LOC: ED 08:27
PROVIDERS: Internal Medicine
DX: F19.10 Other psychoactive substance abuse, uncomplicated (principal); Z88.0 Allergy status to penicillin; Z88.8 Allergy status to other drugs, medicaments and biological substances; Z98.890 Other specified postprocedural states; F14.10 Cocaine abuse, uncomplicated; F12.10 Cannabis abuse, uncomplicated

== ENCOUNTER 2023-07-13 21:08 | Emergency (ER) | payer OTHER ==
[~2023-07-13] VITALS: Ht 165.1 cm; Wt 54.4 kg
[2023-07-13] MEDS ORDERED: SUBOXONE 12 MG1 EACH SL (21:14)
[2023-07-13] MEDS ORDERED: SUBOXONE 8 MG-1 EACH SL (21:15)
[2023-07-13 21:47] LABS: BASO % 0.1 % (0.0-1.0); EOS % 0.1 % (1.0-4.0); HEMATOCRIT 47.6 % (37.0-47.0); LYMPH # 2.1 10*3/uL (1.3-4.4); LYMPH % 13.2 % (27.0-41.0); MEAN CELL VOLUME 104.8 fl (81.0-99.0); MEAN CORPUSCULAR HGB 36.6 pg (27.0-31.0); MEAN CORPUSCULAR HGB CONC 34.9 g/dl (33.0-37.0); MONO # 1.1 10*3/uL (0.1-1.0); MONO % 7.3 % (3.0-9.0); NEUT # 12.2 10*3/uL (2.3-7.9); NEUT % 78.8 % (47.0-73.0); PLATELET COUNT AUTOMATED 209 10*3/uL (130-400); RED BLOOD COUNT 4.54 10*6/uL (4.10-5.10); RED CELL DISTRI WIDTH 12.2 % (0-14.5); WHITE BLOOD COUNT 15.5 10*3/uL (4.8-10.8)
[2023-07-13 22:00] LABS: ACT PARTIAL THROMBO TIME 23.5 SECONDS (20.0-32.1)
[2023-07-13 22:16] LABS: ALKALINE PHOSPHATASE 83 U/L (46-116); BUN 35 mg/dl (9-23); CHLORIDE 106 mmol/L (98-107); CPK 1242 U/L (34-171); LIPASE 37 U/L (12-53); POTASSIUM 3.1 mmol/L (3.4-5.1); SGPT/ALT 37 U/L (5-49); TOTAL PROTEIN 8.1 gm/dL (6.0-8.0)
[2023-07-13 22:17] LABS: ETHYL ALCOHOL < 3.0 mg/dl (<3)
== END 2023-07-14 00:03 | disposition short-term general hospital (02) ==
LOC: ED 21:08
PROVIDERS: Internal Medicine
DX: S03.01XA Dislocation of jaw, right side, initial encounter (principal); I62.00 Nontraumatic subdural hemorrhage, unspecified; J18.9 Pneumonia, unspecified organism; J44.9 Chronic obstructive pulmonary disease, unspecified; E16.2 Hypoglycemia, unspecified; Z88.0 Allergy status to penicillin; Z88.6 Allergy status to analgesic agent; Z88.8 Allergy status to other drugs, medicaments and biological substances; Z98.890 Other specified postprocedural states; F10.10 Alcohol abuse, uncomplicated; F14.10 Cocaine abuse, uncomplicated; F12.10 Cannabis abuse, uncomplicated; F17.210 Nicotine dependence, cigarettes, uncomplicated; F11.10 Opioid abuse, uncomplicated; X58.XXXA Exposure to other specified factors, initial encounter; Y93.9 Activity, unspecified; Y92.511 Restaurant or cafe as the place of occurrence of the external cause; Y99.8 Other external cause status

== ENCOUNTER 2023-07-19 19:57 | Emergency (ER) | payer OTHER ==
[~2023-07-19] VITALS: Ht 165.1 cm; Wt 56.7 kg
[~2023-07-19 19:57] MED LIST changes: +SUBOXONE 12 MG1 EACH SL; +SUBOXONE 8 MG-1 EACH SL
== END 2023-07-19 22:16 | disposition home or self-care (01) ==
LOC: ED 19:57
DX: Z76.0 Encounter for issue of repeat prescription (principal); J44.9 Chronic obstructive pulmonary disease, unspecified; E16.2 Hypoglycemia, unspecified; Z88.0 Allergy status to penicillin; Z88.6 Allergy status to analgesic agent; Z88.8 Allergy status to other drugs, medicaments and biological substances; Z98.890 Other specified postprocedural states; F10.10 Alcohol abuse, uncomplicated; F14.10 Cocaine abuse, uncomplicated; F12.10 Cannabis abuse, uncomplicated; F17.210 Nicotine dependence, cigarettes, uncomplicated

== ENCOUNTER 2024-06-16 10:07 | Inpatient (IN) | payer OTHER ==
[~2024-06-16] VITALS: Wt 54.4 kg
[2024-06-16 10:23] VITALS: BP 119/94
[2024-06-16] MEDS ORDERED: FOLIC ACID 1 MG TAB PO ONE ×2 (10:45→13:25)
[2024-06-16] MEDS ORDERED: MAGNESIUM SULFATE 4 GM/100 ML IVB IV ONE (10:45)
[2024-06-16 10:59] LABS: BASO % 0.4 % (0.0-1.0); EOS % 0.1 % (1.0-4.0); MEAN CELL VOLUME 104.4 fl (81.0-99.0); MEAN CORPUSCULAR HGB 35.8 pg (27.0-31.0); MEAN CORPUSCULAR HGB CONC 34.3 g/dl (33.0-37.0); MONO # 0.6 10*3/uL (0.1-1.0); MONO % 6.3 % (3.0-9.0); NEUT # 6.9 10*3/uL (2.3-7.9); NEUT % 77.3 % (47.0-73.0); PLATELET COUNT AUTOMATED 150 10*3/uL (130-400); RED CELL DISTRI WIDTH 11.4 % (0-14.5); WHITE BLOOD COUNT 8.9 10*3/uL (4.8-10.8)
[2024-06-16 11:18] LABS: BUN 17 mg/dl (9-23); CHLORIDE 105 mmol/L (98-107); POTASSIUM 3.4 mmol/L (3.4-5.1)
[2024-06-16 11:24] LABS: ETHYL ALCOHOL < 3.0 mg/dl (<3)
[2024-06-16 11:30] LABS: BILIRUBIN Negative (Negative); BLOOD 3+ (Negative); CLARITY Turbid (Clear); COLOR Yellow (Yellow); GLUCOSE Negative (Negative); KETONE Negative (Negative); LEUKO ESTERASE 3+ (Negative); NITRITE Positive (Negative); SPECIFIC GRAVITY 1.015 (1.001-1.030); UROBILINOGEN 0.2 E.U./dl (0.0-1.0)
[2024-06-16] MEDS ORDERED: DIAZEPAM 5 MG TAB PO ONE (11:30)
[2024-06-16 11:33] LABS: BACTERIA 4+; RBC TNTC rbc/hpf (0-2); WBC TNTC wbc/hpf (0-5)
[2024-06-16 11:36] LABS: URINE AMPHETAMINES Negative (1000ng/ml); URINE BARBITURATES Negative (200ng/ml); URINE BENZODIAZEPINES Negative (200ng/ml); URINE CANNABINOIDS (THC) Negative (50ng/ml); URINE COCAINE Positive (300ng/ml); URINE METHADONE Negative (300ng/ml); URINE OPIATES Negative (300ng/ml); URINE PHENCYCLIDINE Negative (25ng/ml)
[2024-06-16] MEDS ORDERED: Ceftriaxone Sodium 1 GM/10 ML SYR IV ONE (11:40)
[2024-06-16] MEDS ORDERED: Dicyclomine Hydrochloride 20 MG TAB PO PRN (12:20)
[2024-06-16] MEDS ORDERED: hydrOXYzine 50 MG CAP PO PRN (12:20)
[2024-06-16] MEDS ORDERED: LORazepam 2 MG/ML VIAL IV PRN (12:20)
[2024-06-16] MEDS ORDERED: Water, Sterile 10 ML VIAL IV PRN (12:20)
[2024-06-16] MEDS ORDERED: METHOCARBAMOL 750 MG TAB PO PRN (12:20)
[2024-06-16] MEDS ORDERED: Ondansetron Hydrochloride 4 MG/2 ML VIAL IV PRN (12:30)
[2024-06-16] MEDS ORDERED: LORazepam 1 MG TAB PO SCH ×2 (12:33→14:00)
[2024-06-16] MEDS ORDERED: Thiamine 100 MG TAB PO SCH (13:25)
[2024-06-16] MEDS ORDERED: Nicotine 21 MG PATCH T SCH (14:00)
[2024-06-16] MEDS ORDERED: Buprenorphine Hydrochloride 2 MG TAB SL SCH (14:00)
[2024-06-16] MEDS ORDERED: Thiamine 200 MG/2 ML VIAL IV SCH (14:00)
[2024-06-16 17:18] VITALS: BP 126/84
[2024-06-16] MEDS ORDERED: BUPRENORPHINE HCL/NALOXONE 2 MG/0.5 MG SL TAB SL SCH (22:00)
[2024-06-16] MEDS ORDERED: Nitrofurantoin Monohydrate/N 100 MG CAP PO SCH (22:00)
[2024-06-17] MEDS ORDERED: AMITRIPTYLINE25 MG PO (03:18)
[2024-06-17] MEDS ORDERED: RISPERIDONE1 MG PO (03:18)
[2024-06-17] MEDS ORDERED: BUPRENORPHINE-1 EAC2 SL (03:19)
[2024-06-17] MEDS ORDERED: BUDESONIDE-FO10.2 G1 INH (03:20)
[2024-06-17 04:12] LABS: BASO % 0.3 % (0.0-1.0); EOS # 0.1 10*3/uL (0.0-0.4); EOS % 0.9 % (1.0-4.0); HEMATOCRIT 47.7 % (37.0-47.0); MEAN CELL VOLUME 105.5 fl (81.0-99.0); MEAN CORPUSCULAR HGB 35.8 pg (27.0-31.0); MEAN PLATELET VOLUME 8.8 fl (9.6-12.3); MONO % 8.8 % (3.0-9.0); NEUT # 7.9 10*3/uL (2.3-7.9); NEUT % 68.1 % (47.0-73.0); PLATELET COUNT AUTOMATED 166 10*3/uL (130-400); RED BLOOD COUNT 4.52 10*6/uL (4.10-5.10); RED CELL DISTRI WIDTH 11.6 % (0-14.5); WHITE BLOOD COUNT 11.6 10*3/uL (4.8-10.8)
[2024-06-17 04:38] LABS: ALKALINE PHOSPHATASE 67 U/L (46-116); BUN 18 mg/dl (9-23); CHLORIDE 103 mmol/L (98-107); CHOLESTEROL 192 mg/dL (<200); FREE T4 1.07 ng/dl (0.89-1.76); LDL CHOLESTEROL 104 mg/dL (9-159); POTASSIUM 3.6 mmol/L (3.4-5.1); SGPT/ALT 10 U/L (5-49); TOTAL PROTEIN 7.2 gm/dL (6.0-8.0); TRIGLYCERIDES 85 mg/dl (<150)
[2024-06-17 08:05] LABS: VITAMIN D, 25-HYDROXY 24.3 ng/mL (30-100)
[2024-06-17] MEDS ORDERED: Enoxaparin Sodium 40 MG/0.4 ML SYR SC SCH (10:00)
[2024-06-17] MEDS ORDERED: FOLIC ACID 1 MG TAB PO SCH (10:00)
[2024-06-17] MEDS ORDERED: MULTIVITAMIN 1 TAB TAB PO SCH (10:00)
[2024-06-17] MEDS ORDERED: CEFDINIR 300 MG CAP PO SCH (10:00)
[2024-06-17] MEDS ORDERED: NEURONTIN100 MG PO (10:22)
[2024-06-17] MEDS ORDERED: SYMB160 INH (10:23)
[2024-06-17] MEDS ORDERED: DEPO TESTOS200 MG/ML IM (10:24)
[2024-06-17] MEDS ORDERED: NATURE'S BLEND100 M2 PO (11:02)
[2024-06-17] MEDS ORDERED: TAB-A-VITE TA400 MCG PO (11:02)
[2024-06-17] MEDS ORDERED: NITROFURANTOIN100 M9 PO (11:02)
[2024-06-17] MEDS ORDERED: BUDESONIDE 0.5 MG AMP NEB SCH (11:05)
[2024-06-17] MEDS ORDERED: Albuterol Sulfate 2.5 MG/3 ML VIAL NEB SCH (11:05)
[2024-06-17] MEDS ORDERED: BUPRENORPHINE HCL/NALOXONE 2 MG/0.5 MG SL TAB SL ONE (11:30)
[2024-06-17] MEDS ORDERED: busPIRone Hydrochloride 10 MG TAB PO ONE (11:30)
[2024-06-17] MEDS ORDERED: busPIRone Hydrochloride 10 MG TAB PO SCH (14:00)
[2024-06-17] MEDS ORDERED: GABAPENTIN 600 MG TAB PO ONE (14:00)
[2024-06-17] MEDS ORDERED: LORazepam 1 MG TAB PO ONE (14:00)
[2024-06-17] MEDS ORDERED: Buprenorphine Hydrochloride 2 MG TAB SL SCH (14:00)
[2024-06-17] MEDS ORDERED: RISPERIDONE 1 MG TAB PO ONE (14:00)
[2024-06-17] MEDS ORDERED: BUPRENORPHINE HCL/NALOXONE 2 MG/0.5 MG SL TAB SL SCH (22:00)
[2024-06-17] MEDS ORDERED: Budesonide/Formoterol Fumarate 160/4.5 inhaler INH SCH (22:00)
[2024-06-17] MEDS ORDERED: Amitriptyline Hydrochloride 25 MG TAB PO SCH (22:00)
[2024-06-18] MEDS ORDERED: LORazepam 1 MG TAB PO PRN
[2024-06-18] MEDS ORDERED: buPROPion XL 150 MG TAB PO SCH (10:00)
[2024-06-18] MEDS ORDERED: Buprenorphine Hydrochloride 2 MG TAB SL SCH (18:00)
[2024-06-18] MEDS ORDERED: BUPRENORPHINE HCL/NALOXONE 2 MG/0.5 MG SL TAB SL SCH (22:00)
== END 2024-06-17 17:42 | disposition home or self-care (01) | DRG 773 ==
LOC: ED 10:07 → EDHOLD 12:01
PROVIDERS: Emergency Medicine; Student in an Organized Health Care Education/Training Program; ADMIT Internal Medicine; ATTEND Internal Medicine
DX: F10.230 Alcohol dependence with withdrawal, uncomplicated (principal); F41.9 Anxiety disorder, unspecified; F17.210 Nicotine dependence, cigarettes, uncomplicated; N30.01 Acute cystitis with hematuria; R73.9 Hyperglycemia, unspecified; F14.10 Cocaine abuse, uncomplicated; F11.13 Opioid abuse with withdrawal; F95.2 Tourette's disorder; Z88.0 Allergy status to penicillin; Z88.6 Allergy status to analgesic agent; Z79.899 Other long term (current) drug therapy; Z82.0 Family history of epilepsy and other diseases of the nervous system; Z71.6 Tobacco abuse counseling

== ENCOUNTER 2024-07-05 17:21 | Emergency (ER) | payer OTHER ==
[~2024-07-05] VITALS: Ht 180.3 cm; Wt 55.4 kg
[~2024-07-05 17:21] MED LIST changes: +AMITRIPTYLINE25 MG PO; +BUDESONIDE-FO10.2 G1 INH; +BUPRENORPHINE-1 EAC2 SL; +DEPO TESTOS200 MG/ML IM; +NATURE'S BLEND100 M2 PO; +NEURONTIN100 MG PO; +NITROFURANTOIN100 M9 PO; +RISPERIDONE1 MG PO; +SYMB160 INH; +TAB-A-VITE TA400 MCG PO
[2024-07-05 18:20] LABS: ALKALINE PHOSPHATASE 78 U/L (46-116); BUN 18 mg/dl (9-23); CHLORIDE 105 mmol/L (98-107); ETHYL ALCOHOL < 3.0 mg/dl (<3); POTASSIUM 3.5 mmol/L (3.4-5.1); SGPT/ALT 28 U/L (5-49); TOTAL PROTEIN 7.5 gm/dL (6.0-8.0)
[2024-07-05 18:39] LABS: BASO % 0.5 % (0.0-1.0); EOS # 0.1 10*3/uL (0.0-0.4); EOS % 1.3 % (1.0-4.0); HEMATOCRIT 41.9 % (37.0-47.0); MEAN CELL VOLUME 104.8 fl (81.0-99.0); MEAN CORPUSCULAR HGB 35.8 pg (27.0-31.0); MEAN CORPUSCULAR HGB CONC 34.1 g/dl (33.0-37.0); MEAN PLATELET VOLUME 8.9 fl (9.6-12.3); MONO # 0.8 10*3/uL (0.1-1.0); MONO % 10.3 % (3.0-9.0); NEUT # 4.3 10*3/uL (2.3-7.9); NEUT % 55.2 % (47.0-73.0); PLATELET COUNT AUTOMATED 207 10*3/uL (130-400); RED CELL DISTRI WIDTH 11.3 % (0-14.5); WHITE BLOOD COUNT 7.8 10*3/uL (4.8-10.8)
[2024-07-06 05:59] LABS: URINE AMPHETAMINES Positive (1000ng/ml); URINE BARBITURATES Negative (200ng/ml); URINE BENZODIAZEPINES Negative (200ng/ml); URINE CANNABINOIDS (THC) Negative (50ng/ml); URINE COCAINE Positive (300ng/ml); URINE METHADONE Negative (300ng/ml); URINE OPIATES Negative (300ng/ml); URINE PHENCYCLIDINE Negative (25ng/ml)
[2024-07-06] MEDS ORDERED: LORazepam 1 MG TAB PO ONE (08:50)
[2024-07-06] MEDS ORDERED: Nicotine 14 MG PATCH T SCH (10:00)
== END 2024-07-06 17:55 ==
LOC: ED 17:21
PROVIDERS: Emergency Medicine
DX: F19.139 Other psychoactive substance abuse with withdrawal, unspecified (principal); J44.9 Chronic obstructive pulmonary disease, unspecified; F14.10 Cocaine abuse, uncomplicated; F12.10 Cannabis abuse, uncomplicated; F17.210 Nicotine dependence, cigarettes, uncomplicated; F10.10 Alcohol abuse, uncomplicated; Z88.0 Allergy status to penicillin; Z88.6 Allergy status to analgesic agent; Z88.8 Allergy status to other drugs, medicaments and biological substances; Z98.890 Other specified postprocedural states; Z79.899 Other long term (current) drug therapy